=== PATIENT | female | born 1980 | race Caucasian/White ===

== ENCOUNTER 2016-10-01 22:31 | Emergency (ER) | payer MEDICARE ==
[2011-12-15 12:30] VITALS: BMI 20.7
[2016-10-01 22:56] LABS: BASOPHILS 0.8 % (0-2); HEMATOCRIT 43.9 % (36.0-48.0); HEMOGLOBIN 15.1 g/dL (12-16); LYMPHOCYTES 33.6 % (15-50); MCH 32.1 pg (26.0-34.0); MCHC 34.4 g/dL (31.0-37.0); MCV 93.2 fL (80.0-100.0); MEAN PLATELET VOLUME 11.3 fL (7.4-10.4); MONOCYTES 8.6 % (2-11); PLATELET COUNT 244 10x3/uL (130-400); RBC 4.71 10x6/uL (4.00-5.40); RDW 12.3 % (11.5-14.5); WBC 6.1 10x3/uL (4.8-10.8)
[2016-10-01 23:10] LABS: ANION GAP 7.2 mmol/L (8-16); BILIRUBIN - TOTAL 0.26 mg/dL (0.2-1.3); CALCIUM 9.3 mg/dL (8.5-10.1); CARBON DIOXIDE 34.1 mmol/L (21.0-32.0); CREATININE - SERUM 0.9 mg/dL (0.6-1.3); POTASSIUM - SERUM 4.3 mmol/L (3.5-5.1); PROTEIN - SERUM 7.7 g/dL (6.4-8.2)
[2016-10-02 00:02] LABS: AMYLASE - SERUM 70 U/L (25-115); LIPASE 155 U/L (73-393)
[2016-10-02 00:17] LABS: APPEARANCE CLEAR (CLEAR); BILIRUBIN NEGATIVE (NEGATIVE); COLOR YELLOW (YELLOW); GLUCOSE NEGATIVE (NEGATIVE); KETONE NEGATIVE (NEGATIVE); LEUKOCYTE ESTERASE NEGATIVE (NEGATIVE); NITRITE NEGATIVE (NEGATIVE); PROTEIN NEGATIVE (NEGATIVE); SPECIFIC GRAVITY 1.015 (1.005-1.020); UROBILINOGEN NORMAL (NORMAL)
== END 2016-10-02 01:53 | disposition home or self-care (01) ==
LOC: D.ER 22:31
PROVIDERS: Family Medicine; Nurse Practitioner Family
DX: R10.9 Unspecified abdominal pain (principal); F17.200 Nicotine dependence, unspecified, uncomplicated

== ENCOUNTER 2017-01-24 17:07 | Emergency (ER) | payer MEDICARE ==
[2011-12-15 12:30] VITALS: BMI 20.7
[2017-01-24 18:30] LABS: BASOPHILS 0.4 % (0-2); HEMATOCRIT 44.7 % (36.0-48.0); HEMOGLOBIN 15.6 g/dL (12-16); IMMATURE GRANULOCYTES 0.2 % (0-5); LYMPHOCYTES 20.4 % (15-50); MCHC 34.9 g/dL (31.0-37.0); MCV 91.8 fL (80.0-100.0); MONOCYTES 5.6 % (2-11); NEUTROPHILS 72.4 % (40-80); PLATELET COUNT 218 10x3/uL (130-400); RBC 4.87 10x6/uL (4.00-5.40); RDW 12.4 % (11.5-14.5); WBC 10.6 10x3/uL (4.8-10.8)
[2017-01-26] MEDS ORDERED: BUPROPION HCL75 MG PO (07:46)
[2017-01-26] MEDS ORDERED: DEPO ESTRADIOL INJ (07:47)
[2017-01-26] MEDS ORDERED: ADDERALL 30 MG30 MG PO (07:48)
[2017-01-26] MEDS ORDERED: PERCOCET 10/3251 TA1 PO (07:49)
[2017-01-26] MEDS ORDERED: VALIUM5 MG PO (07:49)
== END 2017-01-24 21:41 | disposition home or self-care (01) ==
LOC: D.ER 17:07
PROVIDERS: Family Medicine
DX: S52.511A Displaced fracture of right radial styloid process, initial encounter for closed fracture (principal); V43.52XA Car driver injured in collision with other type car in traffic accident, initial encounter; Y93.89 Activity, other specified; Y92.410 Unspecified street and highway as the place of occurrence of the external cause; F17.200 Nicotine dependence, unspecified, uncomplicated

== ENCOUNTER 2017-01-27 06:43 | Day surgery (SDC) | payer MEDICARE ==
[~2017-01-27] VITALS: Ht 170.2 cm; Wt 68.0 kg
[~2017-01-27 06:43] MED LIST: ADDERALL 30 MG30 MG PO; BUPROPION HCL75 MG PO; DEPO ESTRADIOL INJ; PERCOCET 10/3251 TA1 PO; VALIUM5 MG PO
[2017-01-27 07:34] LABS: HEMATOCRIT 42.3 % (36.0-48.0); HEMOGLOBIN 15.1 g/dL (12-16); MCH 32.1 pg (26.0-34.0); MCHC 35.7 g/dL (31.0-37.0); MCV 89.8 fL (80.0-100.0); MEAN PLATELET VOLUME 11.1 fL (7.4-10.4); RBC 4.71 10x6/uL (4.00-5.40); RDW 12.2 % (11.5-14.5); WBC 8.8 10x3/uL (4.8-10.8)
[2017-01-27 08:50] VITALS: BP 126/85; Ht 170.2 cm; Wt 68.0 kg
--- NOTE | 2017-01-27 11:12 | NUR ---
ASKED PT IF SHE IS IN PAIN, PT SHOOK HER HEAD NO. WILL CONTINUE TO MONITOR
--- NOTE | 2017-01-27 15:53 | NUR ---
1200 IV DC WITH CATHER TIP INTACT
--- NOTE | 2017-01-27 15:54 | NUR ---
1230 PT STILL DROWSY NO FAMILY IN ROOM 1315 AWAKE TOLERATED DIET 1345 FAMILY HERTE TO TAKED PT HOME
--- NOTE | 2017-01-30 15:31 | OP ---
PATIENT NAME: ÁNGEL WALKER MEDICAL RECORD: [id number] :76 LOCATION:D.OPS ADMISSION DATE: SURGEON: YANELIS CARTER MD DATE OF OPERATION: 01/27/2017 PREOPERATIVE DIAGNOSIS: Comminuted intra-articular distal radius fracture of the right wrist. POSTOPERATIVE DIAGNOSIS: Comminuted intra-articular distal radius fracture of the right wrist. PROCEDURE: Open reduction internal fixation of comminuted intra-articular distal radius fracture of the right wrist. SURGEON: Yanelis Carter MD ANESTHESIA: General. INTRAOPERATIVE COMPLICATIONS: None. SUMMARY OF PATHOLOGIC FINDINGS: As per the preoperative radiographs, the patient had a comminuted intraarticular distal radius fracture with a punch fragment. OPERATIVE SUMMARY IN DETAIL: After obtaining the appropriate preoperative orthopedic surgery consent as well as anesthetic consultation, evaluation and clearance the patient was brought to the operating room and placed on the operating table in supine position. After adequate general laryngeal mask was administered, tourniquet was placed about the proximal aspect of the right upper extremity. Right upper extremity was then prepped and draped in the routine sterile fashion. The arm was elevated and exsanguinated, tourniquet inflated to 250 mmHg. A closed reduction was performed getting the fragments into the appropriate close anatomic position. At this point, provisional K wires were utilized on the scaphoid punch fragment as well as the radial styloid fragment to recreate the patient's volar tilt, radial angle of inclination and to try and close the articular fracture gap. This was all done under fluoroscopic guidance. At this point, a volar incision was made in keeping with volar approach of Sánchez, FCR was found. Dissection was carried down. A formal carpal tunnel release was performed, median nerve which was removed. Dissection was carried down to the bone. The plate was then put into place under fluoroscopy. Serial and sequential drill and fill was used in combination of both locking and nonlocking screws. Anteriorly, provisional pins were taken out of the appropriate point radiographs were taken and submitted for final radiologist review. The wound was copiously irrigated then closed using a 2-0 Vicryl followed by 4-0 Prolene. Sterile dressings were applied. Volar splint was applied. Tourniquet was deflated. The patient was awakened and taken to recovery in stable condition. All final needle and sponge counts were correct. TRANSINT:[id number] Voice Confirmation ID: [id number] DOCUMENT ID: [id number] OPERATIVE REPORT [id number] ÁNGEL WALKER MD, YANELIS THOMSON at 1531 CC: [id number] DICTATION DATE: 01/27/17 1051 PROJECT SCHEDULER: 01/27/17 1114 [facility] 01/27/17 [place] [id number]
== END 2017-01-27 14:00 | disposition home or self-care (01) ==
LOC: D.OPS 06:43 → D.PAN 09:00 → D.OPS 09:00
PROVIDERS: Anesthesiology
DX: S52.501A Unspecified fracture of the lower end of right radius, initial encounter for closed fracture (principal); F17.200 Nicotine dependence, unspecified, uncomplicated; Z01.812 Encounter for preprocedural laboratory examination

== ENCOUNTER 2017-01-28 17:01 | Emergency (ER) | payer MEDICARE ==
[2017-01-27 08:50] VITALS: BMI 23.5
== END 2017-01-28 18:50 | disposition home or self-care (01) ==
LOC: D.ER 17:01
DX: G89.18 Other acute postprocedural pain (principal); F17.200 Nicotine dependence, unspecified, uncomplicated